=== PATIENT | female | born 1985 | race Two or more races ===

== ENCOUNTER 2022-05-28 05:50 | Day surgery (SDC) | payer OTHER | END 2022-05-28 15:20 | disposition home or self-care (01) | LOC: CIR.AMB 05:50 | PROVIDERS: ATTEND Specialist | DX: C54.1 Malignant neoplasm of endometrium (principal); Z20.822 Contact with and (suspected) exposure to COVID-19; E66.9 Obesity, unspecified ==

== ENCOUNTER 2022-08-25 11:15 | Inpatient (IN) | payer OTHER ==
[~2022-08-25] VITALS: Ht 160 cm; Wt 85.3 kg
== END 2022-08-29 17:48 | disposition home or self-care (01) | DRG 741 ==
LOC: OB/GYN 08-27 06:00 → O/R 08-27 06:00 → SURG 08-27 07:00 → OB/GYN 08-27 11:11 → SURG 08-27 11:15 → OB/GYN 08-29 17:48
PROVIDERS: ADMIT Specialist; ATTEND Specialist
PROC: 0UT70ZZ Resection of Bilateral Fallopian Tubes, Open Approach (ICD-10-PCS; 2022-08-27)
PROC: 0UT20ZZ Resection of Bilateral Ovaries, Open Approach (ICD-10-PCS; 2022-08-27)
PROC: 07BC0ZZ Excision of Pelvis Lymphatic, Open Approach (ICD-10-PCS; 2022-08-27)
PROC: 0DBU0ZZ Excision of Omentum, Open Approach (ICD-10-PCS; 2022-08-27)
PROC: 3E1M38Z Irrigation of Peritoneal Cavity using Irrigating Substance, Percutaneous Approach (ICD-10-PCS; 2022-08-27)
PROC: 0UT90ZZ Resection of Uterus, Open Approach (ICD-10-PCS; principal; 2022-08-27 07:00)
DX: C54.1 Malignant neoplasm of endometrium (principal); D27.1 Benign neoplasm of left ovary; N80.1 Endometriosis of ovary; N83.02 Follicular cyst of left ovary; N83.01 Follicular cyst of right ovary; Z20.822 Contact with and (suspected) exposure to COVID-19